=== PATIENT | female | born 1995 | race African-American/Black ===

== ENCOUNTER 2017-04-12 13:07 | Emergency (ER) | payer OTHER ==
[~2017-04-12] VITALS: Ht 160 cm; Wt 81.2 kg
[~2017-04-12 13:07] MED LIST: DOCU-27 PO; FERR325T72 PO; POLY17PO29 PO; PREN1TAB46 PO
--- NOTE | 2017-04-12 13:40 | PHYS DOC ---
Past Medical History Past Medical History: No Pertinent History Past Medical History Vertigo about 5 years ago resolved spontaneously did have some unspecified testing Past Surgical History: No Surgical History Alcohol Use: Rarely Drug Use: None Adult General Chief Complaint Chief Complaint: DIZZY/LIGHT HEADED HPI HPI Patient is a 21 year old female who presents with with a three-day history of intermittent vertigo sensation of room spinning only with head movement completely resolved when she lays still. Denies any headache or blurry vision or difficulty swallowing or speaking. Denies any history of lack of coordination or difficulty walking. Reports prior history similar to this that resolved spontaneously with symptomatic treatment. LMP currently. Review of Systems Review of Systems Constitutional: Denies fever or chills [] Eyes: Denies change in visual acuity, redness, or eye pain [] HENT: Denies nasal congestion or sore throat [] Respiratory: Denies cough or shortness of breath [] Cardiovascular: No additional information not addressed in HPI [] GI: Denies abdominal pain, nausea, vomiting, bloody stools or diarrhea [] : Denies dysuria or hematuria [] Musculoskeletal: Denies back pain or joint pain [] Integument: Denies rash or skin lesions [] Neurologic: Denies headache, focal weakness or sensory changes [] Endocrine: Denies polyuria or polydipsia [] Family History Family History Noncontributory Current Medications Current Medications Current Medications Medications (Trade) Dose Ordered Sig/Praveen Start Time Stop Time Status Last Admin Dose Admin Meclizine HCl (Antivert) 25 mg 1X ONCE 04/12/17 13:45 04/12/17 13:46 DC 04/12/17 14:14 25 MG Allergies Allergies Allergies Coded Allergies Type Severity Reaction Last Updated Verified Sulfa (Sulfonamide Antibiotics) Allergy Intermediate Hives 04/12/17 Yes Physical Exam Physical Exam Constitutional: Well developed, well nourished, no acute distress, non-toxic appearance. [] HENT: Normocephalic, atraumatic, bilateral external ears normal, oropharynx moist, no oral exudates, nose normal. [] Eyes: PERRLA, EOMI, conjunctiva normal, no discharge. [] Neck: Normal range of motion, no tenderness, supple, no stridor. [] Cardiovascular:Heart rate regular rhythm, no murmur [] Lungs & Thorax: Bilateral breath sounds clear to auscultation [] Abdomen: Bowel sounds normal, soft, no tenderness, no masses, no pulsatile masses. [] Skin: Warm, dry, no erythema, no rash. [] Back: No tenderness, no CVA tenderness. [] Extremities: No tenderness, no cyanosis, no clubbing, ROM intact, no edema. [] Neurologic: Alert and oriented X 3, normal motor function, normal sensory function, no focal deficits noted. [Normal finger to nose; no nystagmus with lateral gaze;] Psychologic: Affect normal, judgement normal, mood normal. [] Current Patient Data Vital Signs Vital Signs Date Time Temp Pulse Resp B/P (MAP) Pulse Ox O2 Delivery O2 Flow Rate FiO2 04/12/17 14:14 79 18 106/60 (75) 99 04/12/17 13:19 98.5 Room Air 98.5 Lab Values Laboratory Tests Test 04/12/17 13:10 04/12/17 13:50 POC Urine HCG, Qualitative Hcg negative (Negative) POC Hemoglobin 13.3 g/dL (12-15) POC Hematocrit 39 % (36-40) POC Sodium 138 mmol/L (135-145) POC Potassium 3.4 mmol/L (3.5-5.0) L POC Chloride 105 mmol/L (98-110) POC Total CO2 22 mmol/L (23-32) L Anion Gap 16 mmol/L (6-14) H POC Blood Urea Nitrogen 7 mg/dL (8-26) L POC Creatinine 0.6 mg/dL (0.5-1.4) Glucose Level 116 mg/dL (70-99) H POC Ionized Calcium (Evangelist) 1.17 mmol/L (1.13-1.32) Laboratory Tests 04/12/17 13:50 EKG EKG EKG normal sinus rhythm rate of 79, no STEMI interpretation time 1345 [] Radiology/Procedures Radiology/Procedures [] Course & Med Decision Making Course & Med Decision Making Pertinent Labs and Imaging studies reviewed. (See chart for details) [Patient clinically improved prior to dismissal] Dragon Disclaimer Dragon Disclaimer This electronic medical record was generated, in whole or in part, using a voice recognition dictation system. Departure Departure Impression: Primary Impression: Vertigo, benign positional Disposition: HOME, SELF-CARE Condition: IMPROVED Referrals: NO PCP (PCP) Patient Instructions: Vertigo, [id number] Scripts Meclizine Hcl (MECLIZINE HCL) 25 Mg Tablet 1 TAB PO TID Y for dizzy, #15 TAB Prov: SAM BARRERA MD 04/12/17 SAM BARRERA MD April 12, 2017 13:40
[2017-04-12] MEDS ORDERED: MECLIZINE HCL 12.5 MG TABLET. PO ONE (13:45)
--- NOTE | 2017-04-12 13:50 | EKG ---
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
[2017-04-12 13:54] LABS: POTASSIUM ISTAT 3.4 mmol/L (3.5-5.0)
[2017-04-12 14:14] VITALS: BP 106/60
[2017-04-12] MEDS ORDERED: MECL25TA3 PO ×2 (14:34→14:40)
== END 2017-04-12 15:00 | disposition home or self-care (01) ==
LOC: ER 13:07
DX: H81.10 Benign paroxysmal vertigo, unspecified ear (principal); Z88.2 Allergy status to sulfonamides
CPT/HCPCS: 80047; 81025; 93005; 99283; J8597

== ENCOUNTER 2017-08-06 13:22 | Emergency (ER) | payer OTHER ==
[~2017-08-06 13:22] MED LIST changes: +DOCU-109 PO; -DOCU-27 PO; +MECL25TA3 PO
[2017-08-06 14:20] VITALS: BP 122/85
--- NOTE | 2017-08-06 14:34 | PHYS DOC ---
Past Medical History Past Medical History: No Pertinent History Past Surgical History: No Surgical History Alcohol Use: Rarely Drug Use: None Adult General Chief Complaint Chief Complaint: SORE THROAT HPI HPI Patient is a 21 year old female who presents with a sore throat 2 days. She states that she also has started to develop nasal congestion. She denies fever, cough or nausea. Review of Systems Review of Systems Constitutional: Denies fever or chills [] Eyes: Denies change in visual acuity, redness, or eye pain [] HENT: See history of present illness Respiratory: Denies cough or shortness of breath [] Cardiovascular: No additional information not addressed in HPI [] Musculoskeletal: Denies back pain or joint pain [] Integument: Denies rash or skin lesions [] Neurologic: Denies headache, focal weakness or sensory changes [] Endocrine: Denies polyuria or polydipsia [] Allergies Allergies Allergies Coded Allergies Type Severity Reaction Last Updated Verified Sulfa (Sulfonamide Antibiotics) Allergy Intermediate Hives 04/12/17 Yes Physical Exam Physical Exam Constitutional: Well developed, well nourished, no acute distress, non-toxic appearance. [] HENT: Normocephalic, atraumatic, bilateral external ears normal, pharyngeal erythema, drainage noted to back of throat, no oral exudates, nose normal. [] Eyes: PERRLA, EOMI, conjunctiva normal, no discharge. [] Neck: Normal range of motion, no tenderness, supple, no stridor. [] Cardiovascular:Heart rate regular rhythm, no murmur [] Lungs & Thorax: Bilateral breath sounds clear to auscultation [] Abdomen: Bowel sounds normal, soft, no tenderness, no masses, no pulsatile masses. [] Skin: Warm, dry, no erythema, no rash. [] Psychologic: Affect normal, judgement normal, mood normal. [] Current Patient Data Vital Signs Vital Signs Date Time Temp Pulse Resp B/P (MAP) Pulse Ox O2 Delivery O2 Flow Rate FiO2 08/06/17 14:20 98.3 66 16 99 Room Air 98.3 EKG EKG [] Radiology/Procedures Radiology/Procedures [] Course & Med Decision Making Course & Med Decision Making Pertinent Labs and Imaging studies reviewed. (See chart for details) 1. Viral pharyngitis 2. Upper respiratory infection Your rapid strep was negative. Your symptoms suggest you have a virus that has been going through the community recently. Please use cough and cold medication for symptom control. Follow up with your primary care provider in one week if not improving or return to the ED if worsening. Dragon Disclaimer Dragon Disclaimer This electronic medical record was generated, in whole or in part, using a voice recognition dictation system. Departure Departure Referrals: NO PCP (PCP) CORIE DIEZ APRN Aug 06, 2017 14:34
[2017-08-07 07:00] LABS: NEGATIVE OBC STREP NEG; POSITIVE OBC STREP POS
== END 2017-08-06 14:53 | disposition home or self-care (01) ==
LOC: ER 13:22
DX: J02.8 Acute pharyngitis due to other specified organisms (principal); B97.89 Other viral agents as the cause of diseases classified elsewhere; J06.9 Acute upper respiratory infection, unspecified; Z88.2 Allergy status to sulfonamides
CPT/HCPCS: 87070; 87880; 99283

== ENCOUNTER 2018-02-09 07:30 | Emergency (ER) | payer OTHER ==
[2018-02-09 07:58] LABS: URINE HCG POC HCG NEGATIVE (Negative)
[2018-02-09 08:04] LABS: BILIRUBIN,URINE NEGATIVE (NEG); CLARITY,URINE CLOUDY; COLOR,URINE YELLOW; GLUCOSE,URINE NEGATIVE (NEG); NITRITE,URINE NEGATIVE (NEG); PH,URINE 6.5; PROTEIN,URINE 100 mg/dL (NEG-TRACE); UROBILINOGEN,URINE 0.2 mg/dL (0.2 mg/dL)
[2018-02-09 08:11] LABS: BACTERIA,URINE MANY /HPF (0-FEW); SQUAMOUS EPITHELIAL CELL,UR MANY /LPF
[2018-02-09 08:14] LABS: WBC,URINE TNTC /HPF (0-4)
[2018-02-09 08:15] LABS: RBC,URINE 20-40 /HPF (0-2)
== END 2018-02-09 08:26 | disposition home or self-care (01) ==
LOC: ER 07:30
DX: N30.00 Acute cystitis without hematuria (principal); Z88.2 Allergy status to sulfonamides
CPT/HCPCS: 81001; 81025; 87086; 99284

== ENCOUNTER 2019-03-13 16:48 | Emergency (ER) | payer OTHER ==
[2018-02-09 07:53] VITALS: BP 119/67
[~2019-03-13 16:48] MED LIST changes: +NITR100C62 PO; -PREN1TAB46 PO; +PRENATAL ONE T1 EACH PO
== END 2019-03-13 19:09 | disposition left against medical advice (07) ==
LOC: ER 16:48
DX: O21.9 Vomiting of pregnancy, unspecified (principal); Z3A.12 12 weeks gestation of pregnancy; Z53.21 Procedure and treatment not carried out due to patient leaving prior to being seen by health care provider

== ENCOUNTER 2019-03-28 08:23 | Emergency (ER) | payer OTHER ==
[~2019-03-28] VITALS: Ht 157.5 cm; Wt 81.2 kg
[2019-03-28 08:27] VITALS: BP 127/76
--- NOTE | 2019-03-28 08:50 | PHYS DOC ---
Past Medical History Past Medical History: No Pertinent History Past Surgical History: No Surgical History Alcohol Use: Occasionally Drug Use: None Adult General Chief Complaint Chief Complaint: COUGH HPI HPI Patient is a 23 year old female 4 para 3 currently 13 weeks presenting to the ED today with cough and nasal congestion, sore throat and intermittent low back pain symptoms began 3 days ago, states she does not have any back pain right now and not able to rate the pain whenever it comes, describes the pain as throbbing. Patient denies any fever. She states she has been following up with her FUNDRAISING DIRECTOR Dr. Nevarez for OB care. Denies any vaginal bleeding, denies any abdominal pain, nausea vomiting. Review of Systems Review of Systems Constitutional: Denies fever or chills [] Eyes: Denies change in visual acuity, redness, or eye pain [] HENT: reports nasal congestion and r sore throat [] Respiratory: reports cough denies shortness of breath [] Cardiovascular: No additional information not addressed in HPI [] GI: Denies abdominal pain, nausea, vomiting, bloody stools or diarrhea [] : Denies dysuria or hematuria [] Musculoskeletal: reports back pain at home none right now denies joint pain [] Integument: Denies rash or skin lesions [] Neurologic: Denies headache, focal weakness or sensory changes [] All other systems were reviewed and found to be within normal limits, except as documented in this note. Allergies Allergies Allergies Coded Allergies Type Severity Reaction Last Updated Verified Sulfa (Sulfonamide Antibiotics) Allergy Intermediate Hives 04/12/17 Yes Physical Exam Physical Exam Constitutional: Well developed, well nourished, no acute distress, non-toxic appearance. [] HENT: Normocephalic, atraumatic, bilateral external ears normal, oropharynx moist, no oral exudates, patient sounds congested nasally Eyes: PERRLA, EOMI, conjunctiva normal, no discharge. [] Neck: Normal range of motion, no tenderness, supple, no stridor. [] Cardiovascular:Heart rate regular rhythm, no murmur [] Lungs & Thorax: Bilateral breath sounds clear to auscultation [] Abdomen: Bowel sounds normal, soft, no tenderness, no masses, no pulsatile masses. [] Skin: Warm, dry, no erythema, no rash. [] Back: No tenderness, no CVA tenderness. [] Extremities: No tenderness, no cyanosis, no clubbing, ROM intact, no edema. [] Neurologic: Alert and oriented X 3, normal motor function, normal sensory function, no focal deficits noted. [] Psychologic: Affect normal, judgement normal, mood normal. [] Current Patient Data Vital Signs Vital Signs Date Time Temp Pulse Resp B/P (MAP) Pulse Ox O2 Delivery O2 Flow Rate FiO2 03/28/19 08:27 97.8 97 16 127/76 (93) 99 Room Air 97.8 Lab Values Laboratory Tests Test 03/28/19 08:30 03/28/19 08:42 Urine Collection Type Unknown Urine Color Yellow Urine Clarity Clear Urine pH 7.5 Urine Specific [place] 1.010 Urine Protein Negative mg/dL (NEG-TRACE) Urine Glucose (UA) Negative mg/dL (NEG) Urine Ketones (Stick) 40 mg/dL (NEG) Urine Blood Trace (NEG) Urine Nitrite Negative (NEG) Urine Bilirubin Negative (NEG) Urine Urobilinogen Dipstick 0.2 mg/dL (0.2 mg/dL) Urine Leukocyte Esterase Negative (NEG) Urine RBC 1-2 /HPF (0-2) Urine WBC 1-4 /HPF (0-4) Urine Squamous Epithelial Cells Many /LPF Urine Bacteria Few /HPF (0-FEW) Urine Mucus Slight /LPF POC Urine HCG, Qualitative Hcg positive (Negative) EKG EKG [] Radiology/Procedures Radiology/Procedures [] Course & Med Decision Making Course & Med Decision Making Pertinent Labs and Imaging studies reviewed. (See chart for details) This is a 23-year-old female patient 4 para 3 currently 13 weeks presenting to the ED today with cough, nasal congestion, sore throat and low back pain, symptoms for 3 days, patient states she does not have any back pain right now. Negative rapid strep. UA negative for infection. Most of her symptoms are viral. She has good follow-up with her FUNDRAISING DIRECTOR, does not have any back pain, abdominal pain, vaginal bleeding, nausea vomiting. We talked about [id number] remedies for managing her viral upper respiratory infection symptoms. Requested her to follow-up with her FUNDRAISING DIRECTOR. Dragon Disclaimer Dragon Disclaimer This electronic medical record was generated, in whole or in part, using a voice recognition dictation system. Departure Departure Impression: Primary Impression: Upper respiratory infection Additional Impressions: Cough Back pain Acute viral pharyngitis Disposition: 01 HOME, SELF-CARE Condition: STABLE Referrals: NO PCP (PCP) JULIAN NEVAREZ MD follow up in 1 week Patient Instructions: Back Pain, Adult, Cough, Adult, [id number], Upper Respiratory Infection, Adult, [id number], Viral Pharyngitis Additional Instructions: You were evaluated in the emergency room with symptoms consistent of viral upper respiratory infection, please take Tylenol as needed for pain. You can also take Tylenol for fever. You can get a humidifier and place in your room, it will help with some of your symptoms. Please follow-up with your FUNDRAISING DIRECTOR in the next 1 week Scripts Promethazine Hcl (PROMETHAZINE HCL) 25 Mg Tablet 1 TAB PO PRN Q6HRS, #20 TAB Prov: KEON JEFFERS APRN 03/28/19 Problem Qualifiers Primary Impression: Upper respiratory infection URI type: unspecified URI Qualified Codes: J06.9 - Acute upper respiratory infection, unspecified Additional Impressions: Back pain Back pain location: low back pain Chronicity: acute Back pain laterality: bilateral Sciatica presence: without sciatica Qualified Codes: M54.5 - Low back pain KEON JEFFERS [employer]PLIANCE MANAGER March 28, 2019 08:50
[2019-03-28 08:56] LABS: BILIRUBIN,URINE NEGATIVE (NEG); CLARITY,URINE CLEAR; COLOR,URINE YELLOW; NITRITE,URINE NEGATIVE (NEG); PH,URINE 7.5; PROTEIN,URINE NEGATIVE (NEG-TRACE); UROBILINOGEN,URINE 0.2 mg/dL (0.2 mg/dL)
[2019-03-28 09:07] LABS: BACTERIA,URINE FEW /HPF (0-FEW); SQUAMOUS EPITHELIAL CELL,UR MANY /LPF
[2019-03-28] MEDS ORDERED: PROM25TA10 PO (09:24)
== END 2019-03-28 09:34 | disposition home or self-care (01) ==
LOC: ER 08:23
DX: O99.511 Diseases of the respiratory system complicating pregnancy, first trimester (principal); J02.8 Acute pharyngitis due to other specified organisms; B97.89 Other viral agents as the cause of diseases classified elsewhere; M54.5 Low back pain; Z3A.13 13 weeks gestation of pregnancy; Z88.2 Allergy status to sulfonamides
CPT/HCPCS: 81001; 81025; 87070; 87880; 99284

== ENCOUNTER → 2019-06-18 | Outpatient (CLI) | payer OTHER ==
[~2019-06-18] MED LIST changes: +PROM25TA10 PO
== END | disposition home or self-care (01) ==
LOC: OPS 13:06
PROVIDERS: ATTEND Specialist
DX: O26.893 Other specified pregnancy related conditions, third trimester (principal); Z3A.00 Weeks of gestation of pregnancy not specified
CPT/HCPCS: 36415; 86850; 86900; 86901; 96372; J2791

== ENCOUNTER 2019-09-14 11:11 | Observation (INO) | payer MEDICAID ==
[2019-09-14] MEDS ORDERED: IV RINGERS,LACTATED 1000ML 1,000 ML IV SCH (11:29)
[2019-09-18] MEDS ORDERED: HYDR-3164 PO (17:32)
[2019-09-18] MEDS ORDERED: NAPR500T8 PO (17:32)
== END 2019-09-14 13:33 | disposition home or self-care (01) ==
LOC: 3 SO LND 11:11
PROVIDERS: ADMIT Specialist; ATTEND Specialist
DX: O62.9 Abnormality of forces of labor, unspecified (principal); Z3A.38 38 weeks gestation of pregnancy
CPT/HCPCS: G0378; G0379

== ENCOUNTER 2021-05-30 06:14 | Emergency (ER) | payer SELFPAY ==
[~2021-05-30] VITALS: Ht 157.5 cm; Wt 68.2 kg
[~2021-05-30 06:14] MED LIST changes: +HYDR-3164 PO; +MECL-75 PO; -MECL25TA3 PO; +NAPR500T8 PO
--- NOTE | 2021-05-30 06:38 | PHYS DOC ---
Past Medical History Past Medical History: No Pertinent History Past Surgical History: No Surgical History Smoking Status: Current Some Day Smoker Alcohol Use: Occasionally Drug Use: None General Adult EDM: Chief Complaint: ABDOMINAL PAIN HPI: HPI: Patient is a 25 year old female who presented to ER for evaluation of right upper quadrant abdominal pain off and on for 2 weeks. Pain became more severe today so she came here for evaluation. Patient denies any nausea vomiting, denies any cough or fever. Patient denies any chest pain. Patient denies any urinary symptoms, no vaginal bleeding or discharge. Patient had no history of kidney stones or gallbladder problem in the past. Patient said the pain is at right under her right diaphragm area. Review of Systems: Review of Systems: Constitutional: Denies fever or chills. [] Eyes: Denies change in visual acuity. [] HENT: Denies nasal congestion or sore throat. [] Respiratory: Denies cough or shortness of breath. [] Cardiovascular: Denies chest pain or edema. [] GI: Positive forabdominal pain no nausea vomiting, no diarrhea : Denies dysuria. [] Musculoskeletal: Denies back pain or joint pain. [] Integument: Denies rash. [] Neurologic: Denies headache, focal weakness or sensory changes. [] Endocrine: Denies polyuria or polydipsia. [] Lymphatic: Denies swollen glands. [] Psychiatric: Denies depression or anxiety. [] Heart Score: C/O Chest Pain: N/A Risk Factors: Risk Factors: DM, Current or recent (<one month) smoker, HTN, HLP, family history of CAD, obesity. Risk Scores: Score 0 - 3: 2.5% MACE over next 6 weeks - Discharge Home Score 4 - 6: 20.3% MACE over next 6 weeks - Admit for Clinical Observation Score 7 - 10: 72.7% MACE over next 6 weeks - Early Invasive Strategies Allergies: Allergies: Allergies Coded Allergies Type Severity Reaction Last Updated Verified Sulfa (Sulfonamide Antibiotics) Allergy Intermediate Hives 06/18/19 Yes Physical Exam: PE: Constitutional: Well developed, well nourished, no acute distress, non-toxic appearance. [] HENT: Normocephalic, atraumatic, bilateral external ears normal, oropharynx moist, no oral exudates, nose normal. [] Eyes: PERRLA, EOMI, conjunctiva normal, no discharge. [] Neck: Normal range of motion, no tenderness, supple, no stridor. [] Cardiovascular:Heart rate regular rhythm, no murmur [] Lungs & Thorax: Bilateral breath sounds clear to auscultation [] Abdomen: Bowel sounds normal, soft, there is tenderness in the right upper q uadrant, no masses, no pulsatile masses. [] Skin: Warm, dry, no erythema, no rash. [] Back: No tenderness, no CVA tenderness. [] Extremities: No tenderness, no cyanosis, no clubbing, ROM intact, no edema. [] Neurologic: Alert and oriented X 3, normal motor function, normal sensory function, no focal deficits noted. [] Psychologic: Affect normal, judgement normal, mood normal. [] Current Patient Data: Labs: Laboratory Tests Test 05/30/21 06:31 05/30/21 06:36 Bedside Urine HCG, Qualitative Hcg negative White Blood Count 8.3 x10^3/uL Red Blood Count 3.93 x10^6/uL Hemoglobin 12.8 g/dL Hematocrit 36.6 % Mean Corpuscular Volume 93 fL Mean Corpuscular Hemoglobin 33 pg Mean Corpuscular Hemoglobin Concent 35 g/dL Red Cell Distribution Width 12.9 % Platelet Count 438 x10^3/uL Neutrophils (%) (Auto) 65 % Lymphocytes (%) (Auto) 27 % Monocytes (%) (Auto) 7 % Eosinophils (%) (Auto) 1 % Basophils (%) (Auto) 1 % Neutrophils # (Auto) 5.4 x10^3/uL Lymphocytes # (Auto) 2.2 x10^3/uL Monocytes # (Auto) 0.5 x10^3/uL Eosinophils # (Auto) 0.1 x10^3/uL Basophils # (Auto) 0.0 x10^3/uL Urine Collection Type Unknown Urine Color Yellow Urine Clarity Turbid Urine pH 7.5 Urine Specific [place] 1.020 Urine Protein Negative mg/dL Urine Glucose (UA) Negative mg/dL Urine Ketones (Stick) Negative mg/dL Urine Blood Negative Urine Nitrite Negative Urine Bilirubin Negative Urine Urobilinogen Dipstick 1.0 mg/dL Urine Leukocyte Esterase Trace Urine RBC 0 /HPF Urine WBC Occ /HPF Urine Squamous Epithelial Cells Few /LPF Urine Amorphous Sediment Present /HPF Urine Bacteria Few /HPF Sodium Level 143 mmol/L Potassium Level 3.9 mmol/L Chloride Level 105 mmol/L Carbon Dioxide Level 29 mmol/L Anion Gap 9 Blood Urea Nitrogen 12 mg/dL Creatinine 0.8 mg/dL Estimated GFR (Cockcroft-Gault) 104.1 BUN/Creatinine Ratio 15 Glucose Level 95 mg/dL Calcium Level 9.1 mg/dL Total Bilirubin 0.3 mg/dL Aspartate Amino Transf (AST/SGOT) 16 U/L Alanine Aminotransferase (ALT/SGPT) 11 U/L Alkaline Phosphatase 76 U/L Total Protein 8.3 g/dL Albumin 3.5 g/dL Albumin/Globulin Ratio 0.7 Lipase 60 U/L Current Medications Medications (Trade) Dose Ordered Sig/Praveen Route PRN Reason Start Time Stop Time Status Last Admin Dose Admin Sodium Chloride 1,000 ml @ 1,000 mls/hr Q1H IV 05/30/21 06:45 05/30/21 07:44 DC 05/30/21 06:45 Ondansetron HCl (Zofran) 4 mg 1X ONCE IVP 05/30/21 06:45 05/30/21 06:46 DC 05/30/21 06:45 Morphine Sulfate (Morphine Sulfate) 4 mg 1X ONCE IV 05/30/21 06:45 05/30/21 06:46 DC 05/30/21 07:11 Iohexol (Omnipaque 300 Mg/ml) 75 ml 1X ONCE IV 05/30/21 08:15 05/30/21 08:16 DC 05/30/21 08:18 Info (CONTRAST GIVEN -- Rx MONITORING) 1 each PRN DAILY PRN MC SEE COMMENTS 05/30/21 08:15 06/01/21 08:14 EKG: EKG: [] Radiology/Procedures: Radiology/Procedures: [][facility] [address] [place], [place] [id number] IMAGING REPORT Signed PATIENT: WILYL STARR ACCOUNT: [id number] : 1995 LOCATION: ER AGE: 25 SEX: F EXAM STATUS: REG ER ORD. PHYSICIAN: TEN CORLEY DO REASON: RUQ abdominal pain, GAY NOTIFIED PROCEDURE: ABDOMEN LTD EXAM EXAMINATION: US ABDOMEN LIMITED INDICATION: 25 years, Female, right upper abdominal pain. COMPARISON: 05/29/2016 TECHNIQUE: Grayscale, color Doppler and limited spectral Doppler images of the right upper quadrant were obtained. FINDINGS: LIVER: SIZE (LENGTH): 15.2 cm. ECHOGENICITY: Normal PARENCHYMA: Homogeneous echotexture. No discrete focal lesion. INTRAHEPATIC BILE DUCTS: Nondilated. PORTAL VEIN: Patent with normal hepatopedal flow. GALLBLADDER: GALLBLADDER WALL THICKNESS: 2.2 mm MORPHOLOGY: Underdistended which limits evaluation. No wall hyperemia or pericholecystic free fluid. LUMEN: Normal. COMMON BILE DUCT DIAMETER: 4 mm RIGHT KIDNEY: MEASURES: 11.4 cm in length. MORPHOLOGY/PARENCHYMA: Normal corticomedullary differentiation with no shadowing calculus or discrete masses. COLLECTING SYSTEM: No hydronephrosis. PANCREAS: VISUALIZED PORTIONS: Head and proximal body. APPEARANCE: Within normal limits. OTHER: RETROPERITONEUM, INFERIOR VENA CAVA: Normal caliber. AORTA: Not visualized. FLUID:No free fluid. IMPRESSION: Unremarkable right upper abdomen ultrasound. Electronically signed by: Kleber Bartlett MD (05/30/2021 8:12 AM) [id number] DICTATED and SIGNED BY: KLEBER BARTLETT MD DATE: 05/30/21 [id number] [facility] [address] [facility] [place] [address] IMAGING REPORT Signed PATIENT: WILLY STARR ACCOUNT: [id number] : 1995 LOCATION: ER AGE: 25 SEX: F EXAM STATUS: REG ER ORD. PHYSICIAN: TEN CORLEY DO REASON: right side abdominal pain for 2 weeks, worse today PROCEDURE: CT ABD PELV W/ IV CONTRST ONLY EXAMINATION: CT abdomen and pelvis with IV contrast. INDICATION:25 years, Female, right-sided abdominal pain for 2 weeks. TECHNIQUE: Axial CT images of the abdomen and pelvis were obtained. Coronal and sagittal reformatted performed. COMPARISON: Ultrasound dated 05/30/2021. CT dated 05/29/1916 Exposure: One or more of the following individualized dose reduction techniques were utilized for this examination: 1. Automated exposure control 2. Adjustment of the mA and/or kV according to patient size 3. Use of iterative reconstruction technique. FINDINGS: LOWER CHEST: Unremarkable ABDOMEN/PELVIS: Liver, spleen, gallbladder, biliary ducts, pancreas, adrenals and kidneys are unremarkable. No bowel obstruction or wall thickening. Normal appendix. Minimal fat stranding with trace amount of fluid seen in the right abdomen. Normal caliber abdominal aorta. Mesenteric arteries and portal vein are patent. No pneumoperitoneum. No abdominopelvic vascular by size criteria. Unremarkable urinary bladder and uterus. No suspicious pelvic masses. MUSCULOSKELETAL: No acute osseous process. Small fat-containing umbilical hernia. IMPRESSION: 1. No acute abnormality in the abdomen or pelvis. 2. Minimal fat stranding with trace amount of fluid adjacent to the inferior right hepatic lobe, kidney and non-thickened right colon, nonspecific findings and may relate to resolving inflammation such as polynephritis or colitis. Consider correlation with urinalysis. Electronically signed by: Kleber Bartlett MD (05/30/2021 8:40 AM) [id number] DICTATED and SIGNED BY: KLEBER BARTLETT MD DATE: 05/30/21 [id number] Course & Med Decision Making: Course & Med Decision Making Pertinent Labs and Imaging studies reviewed. (See chart for details) Patient is a 25-year-old female who present to ER due to right upper quadrant abdominal pain, ultrasound of her abdomen did not show any acute problem. CT scan abdomen pelvis did not show any acute problem either. Lab work was normal as well. Patient will be discharged home. Patient will need to follow-up family physician for reevaluation next week. Patient was amenable to plan Dragon Disclaimer: Flavai Disclaimer: This electronic medical record was generated, in whole or in part, using a voice recognition dictation system. Departure Departure Impression: Primary Impression: Abdominal pain Disposition: HOME / SELF CARE / HOMELESS Condition: STABLE Referrals: NO PCP (PCP) Please follow up with [facility] this week. [address], [address] [place] [address] Phone number: [phone] Patient Instructions: Abdominal Pain (Nonspecific) Additional Instructions: Thank you for visiting our Emergency Department. We appreciate you trusting us with your care. If any additional problems come up don't hesitate to return to visit us. Please follow up with your primary care provider so they can plan additional care if needed and know about the problem that you had. If symptoms worsen come back to the Emergency Department. Any concerning symptoms that start such as chest pain, shortness of air, weakness or numbness on one side of the body, running high fevers or any other concerning symptoms return to the ER. TEN CORLEY DO May 30, 2021 06:38
[2021-05-30] MEDS ORDERED: MORPHINE SULFATE 4 MG/ML INJ. IV ONE (06:45)
[2021-05-30] MEDS ORDERED: ONDANSETRON PF 4 MG/2 ML VIAL. IVP ONE (06:45)
[2021-05-30] MEDS ORDERED: IV NORMAL SALINE 1000ML BAG 1,000 ML IV SCH (06:45)
[2021-05-30 06:58] LABS: BASO % 1 % (0-3); EOS # 0.1 x10^3/uL (0.0-0.7); EOS % 1 % (0-3); HEMATOCRIT 36.6 % (36.0-47.0); HEMOGLOBIN 12.8 g/dL (12.0-15.5); LYMPH # 2.2 x10^3/uL (1.0-4.8); LYMPH % 27 % (24-48); MEAN CORPUSCULAR HEMOGLOBIN 33 pg (25-35); MEAN CORPUSCULAR HGB CONC 35 g/dL (31-37); MEAN CORPUSCULAR VOLUME 93 fL (79-100); MONO # 0.5 x10^3/uL (0.0-1.1); MONO % 7 % (0-9); NEUT # 5.4 x10^3/uL (1.8-7.7); NEUT % 65 % (31-73); PLATELET COUNT 438 x10^3/uL (140-400); RED BLOOD COUNT 3.93 x10^6/uL (3.50-5.40); RED CELL DISTRIBUTION WIDTH 12.9 % (11.5-14.5); WHITE BLOOD COUNT 8.3 x10^3/uL (4.0-11.0)
[2021-05-30 06:59] LABS: BILIRUBIN,URINE NEGATIVE (NEG); CLARITY,URINE TURBID; COLOR,URINE YELLOW; NITRITE,URINE NEGATIVE (NEG); PH,URINE 7.5 (<5.0-8.0); PROTEIN,URINE NEGATIVE (NEG-TRACE)
[2021-05-30 07:12] LABS: CALCIUM 9.1 mg/dL (8.5-10.1); CREATININE 0.8 mg/dL (0.6-1.0); GFR 104.1; POTASSIUM 3.9 mmol/L (3.5-5.1)
[2021-05-30 07:18] LABS: ALBUMIN 3.5 g/dL (3.4-5.0); ALBUMIN/GLOBULIN RATIO 0.7 (1.0-1.7); TOTAL BILIRUBIN 0.3 mg/dL (0.2-1.0); TOTAL PROTEIN 8.3 g/dL (6.4-8.2)
[2021-05-30 07:26] LABS: AMORPHOUS SEDIMENT,UR PRESENT /HPF; BACTERIA,URINE FEW /HPF (0-FEW); RBC,URINE 0 /HPF (0-2); WBC,URINE OCC /HPF (0-4)
--- NOTE | 2021-05-30 08:14 | RAD ---
EXAM EXAMINATION: US ABDOMEN LIMITED INDICATION: 25 years, Female, right upper abdominal pain. COMPARISON: 05/29/2016 TECHNIQUE: Grayscale, color Doppler and limited spectral Doppler images of the right upper quadrant w ere obtained. FINDINGS: LIVER: SIZE (LENGTH): 15.2 cm. ECHOGENICITY: Normal PARENCHYMA: Homogeneous echotexture. No discrete focal lesion. INTRAHEPATIC BILE DUCTS: Nondilated. PORTAL VEIN: Patent with normal hepatopedal flow. GALLBLADDER: GALLBLADDER WALL THICKNESS: 2.2 mm MORPHOLOGY: Underdistended which limits evaluation. No wall hyperemia or pericholecystic free fluid. LUMEN: Normal. COMMON BILE DUCT DIAMETER: 4 mm RIGHT KIDNEY: MEASURES: 11.4 cm in length. MORPHOLOGY/PARENCHYMA: Normal corticomedullary differentiation with no shadowing calculus or discrete masses. COLLECTING SYSTEM: No hydronephrosis. PANCREAS: VISUALIZED PORTIONS: Head and proximal body. APPEARANCE: Within normal limits. OTHER: RETROPERITONEUM, INFERIOR VENA CAVA: Normal caliber. AORTA: Not visualized. FLUID:No free fluid. IMPRESSION: Unremarkable right upper abdomen ultrasound. Electronically signed by: Lonnie Bartlett MD (05/30/2021 8:12 AM) [id number]
[2021-05-30] MEDS ORDERED: CONTRAST GIVEN. MC PRN (08:15)
[2021-05-30] MEDS ORDERED: IOHEXOL 300 MG/ML 100ML VIAL. IV ONE (08:15)
--- NOTE | 2021-05-30 08:42 | RAD ---
EXAMINATION: CT abdomen and pelvis with IV contrast. INDICATION:25 years, Female, right-sided abdominal pain for 2 weeks. TECHNIQUE: Axial CT images of the abdomen and pelvis were obtained. Coronal and sagittal reformatted performed. COMPARISON: Ultrasound dated 05/30/2021. CT dated 05/29/1916 Exposure: One or more of the following individualized dose reduction techniques were utilized for thi s examination: 1. Automated exposure control 2. Adjustment of the mA and/or kV according to patient size 3. Use of iterative reconstruction technique. FINDINGS: LOWER CHEST: Unremarkable ABDOMEN/PELVIS: Liver, spleen, gallbladder, biliary ducts, pancreas, adrenals and kidneys are unremarkable. No bowel obstruction or wall thickening. Normal appendix. Minimal fat stranding with trace amount of fluid see n in the right abdomen. Normal caliber abdominal aorta. Mesenteric arteries and portal vein are paten t. No pneumoperitoneum. No abdominopelvic vascular by size criteria. Unremarkable urinary bladder and uterus. No suspicious pelvic masses. MUSCULOSKELETAL: No acute osseous process. Small fat-containing umbilical hernia. IMPRESSION: 1. No acute abnormality in the abdomen or pelvis. 2. Minimal fat stranding with trace amount of fluid adjacent to the inferior right hepatic lobe, kidn ey and non-thickened right colon, nonspecific findings and may relate to resolving inflammation such as polynephritis or colitis. Consider correlation with urinalysis. Electronically signed by: Lonnie Bartlett MD (05/30/2021 8:40 AM) [id number]
[2021-05-30 09:00] VITALS: BP 104/58
== END 2021-05-30 09:08 | disposition home or self-care (01) ==
LOC: ER 06:14
DX: R10.11 Right upper quadrant pain (principal); F17.200 Nicotine dependence, unspecified, uncomplicated; Z88.2 Allergy status to sulfonamides
CPT/HCPCS: 36415; 74177; 76705; 80053; 81001; 81025; 83690; 85025; 87086; 96361; 96374; 96375; 99285; J2270; J2405; J7030; Q9967